=== PATIENT | female | born 1965 | race Caucasian/White ===

== ENCOUNTER → 2020-12-17 | Day surgery (SDC) | payer OTHER ==
[~2020-12-17] MED LIST: ACETAMINOPHEN500 M1 PO; COLACE100 MG PO; MOTRIN600 MG PO; NEXIUM20 MG PO; OXY-IR 5MG5 MG PO
== END | disposition home or self-care (01) ==
LOC: FAS 09:06
DX: K80.10 Calculus of gallbladder with chronic cholecystitis without obstruction (principal); F17.200 Nicotine dependence, unspecified, uncomplicated; Z20.822 Contact with and (suspected) exposure to COVID-19; Z98.51 Tubal ligation status; Z83.79 Family history of other diseases of the digestive system
CPT/HCPCS: J1644; J1885; J2250; J2405; J2704; J2710; J3010; J7120; Q9967